=== PATIENT | male | born 1940 | race Caucasian/White ===

== ENCOUNTER 2016-12-10 13:26 | Outpatient (CLI) | payer MEDICARE, OTHER | END 2016-12-10 13:27 | disposition home or self-care (01) | DX: K80.20 Calculus of gallbladder without cholecystitis without obstruction (principal); I10 Essential (primary) hypertension; G47.00 Insomnia, unspecified ==

== ENCOUNTER 2016-12-23 10:19 | Outpatient (CLI) | payer MEDICARE, OTHER | END 2016-12-23 10:20 | disposition home or self-care (01) | DX: I48.91 Unspecified atrial fibrillation (principal) ==

== ENCOUNTER 2016-12-31 09:53 | Outpatient (CLI) | payer MEDICARE, OTHER | END 2016-12-31 09:54 | disposition home or self-care (01) | DX: I48.91 Unspecified atrial fibrillation (principal) ==

== ENCOUNTER 2020-04-15 09:04 | Outpatient (CLI) | payer MEDICARE, OTHER | END 2020-04-15 09:05 | disposition short-term general hospital (02) | LOC: EMS 09:04 | PROVIDERS: ATTEND Surgery | DX: K92.0 Hematemesis (principal); R53.1 Weakness; R68.83 Chills (without fever) | CPT/HCPCS: A0425; A0427 ==

== ENCOUNTER 2020-04-18 15:04 | Outpatient (CLI) | payer MEDICARE, OTHER | END 2020-04-18 15:05 | disposition home or self-care (01) | LOC: LAB 15:04 | PROVIDERS: ATTEND Family Medicine | DX: Z11.59 Encounter for screening for other viral diseases (principal) | CPT/HCPCS: 81599 ==

== ENCOUNTER 2020-06-02 13:34 | Emergency (ER) | payer MEDICARE, OTHER ==
[2020-06-02] MEDS ORDERED: SODIUM CHLORIDE 0.9% 1,000 ML IV STA ×2 (14:02)
--- NOTE | 2020-06-02 14:04 | ED Physician Documentation ---
History of Present Illness - Stated complaint Stated Complaint: NEAR SYNCOPE - Chief complaint Chief Complaint: Cardiac - History obtained from History obtained from: Patient - History of Present Illness Timing: How many weeks ago (2) - Additonal information Additional information: 80-year-old male with history of hypertension was recently placed on hydrochloro thiazide about 2 weeks ago. He began to feel off about that time. Today he has near syncope and is called the ambulance. He states that he did get a bit diaphoretic and almost passed out. He is not had an injury. Review of Systems Constitutional: denies: Fever Eyes: denies: Decreased vision Ears: denies: Ear pain Nose: denies: Congestion Throat: denies: Sore throat Cardiac: denies: Chest pain / pressure, Palpitations Respiratory: denies: Dyspnea, Cough GI: denies: Abdominal Pain, Nausea, Vomiting, Constipation, Diarrhea : denies: Dysuria, Frequency Skin: denies: Rash Musculoskeletal: denies: Neck pain, Back pain, Extremity pain Neurologic: reports: Generalized weakness, Near syncope. denies: Focal weakness, Numbness PD PAST MEDICAL HISTORY - Allergies Allergies/Adverse Reactions: Allergies Allergy/AdvReac Type Severity Reaction Status Date / Time No Known Drug Allergies Allergy Verified 06/02/20 14:18 PD ED PE NORMAL - Vitals Vital signs reviewed: Yes (wide pulse pressure hpoxiemia) - General General: No acute distress, Well developed/nourished - HEENT HEENT: Atraumatic, PERRL, EOMI - Neck Neck: Supple, no meningeal sign, No bony TTP - Cardiac Cardiac: RRR, No murmur - Respiratory Respiratory: No respiratory distress, Clear bilaterally - Abdomen Abdomen: Normal bowel sounds, Soft, Non tender, Non distended, No organomegaly - Back Back: No CVA TTP, No spinal TTP - Derm Derm: Normal color, Warm and dry, No rash - Extremities Extremities: No deformity, No edema, No calf tenderness / cord - Neuro Neuro: Alert and oriented X 3, neonatal specialist 2-12 intact, No motor deficit, No sensory deficit, Normal speech Eye Opening: Spontaneous Motor: Obeys Commands Verbal: Oriented GCS Score: 15 - Psych Psych: Normal mood, Normal affect Results - Vitals Vitals: Vital Signs - 24 hr 06/02/20 06/02/20 06/02/20 13:44 14:30 15:30 Temperature 36.5 C Heart Rate 59 L 60 63 Respiratory 16 15 13 Rate Blood Pressure 112/46 L 105/45 L 121/55 L O2 Saturation 91 L 99 100 06/02/20 16:00 Temperature Heart Rate 65 Respiratory 18 Rate Blood Pressure 139/49 H O2 Saturation 100 Oxygen O2 Source Room air - EKG (time done) 1338 Rate: Rate (enter#) Rhythm: Other (sinus arrythmia/supraventricular bigeminy) Intervals: Wide QRS Compare to prior EKG: Old EKG unavailable Computer interpretation: Agree with computer - Labs Labs: Laboratory Tests 06/02/20 06/02/20 06/02/20 14:18 14:18 15:47 WBC 10.6 RBC 3.65 L Hgb 9.0 L Hct 29.1 L MCV 79.7 L MCH 24.7 L MCHC 30.9 L RDW 18.3 H Plt Count 349 MPV 10.3 Neut # (Auto) 8.2 H Lymph # (Auto) 1.2 L Bacon # (Auto) 1.0 Eos # (Auto) 0.1 Baso # (Auto) 0.0 Absolute Nucleated RBC 0.00 Nucleated RBC % 0.0 Sodium 136 Potassium 4.1 Chloride 99 L Carbon Dioxide 26 Anion Gap 11.0 BUN 32 H Creatinine 1.4 H Estimated GFR (MDRD) 49 L Glucose 113 H Calcium 9.0 Magnesium 1.8 Total Bilirubin 1.2 H AST 15 ALT 21 Alkaline Phosphatase 90 Total Protein 6.6 L Albumin 3.9 Globulin 2.7 Albumin/Globulin Ratio 1.4 Lipase 27 Urine Color YELLOW Urine Clarity CLEAR Urine pH 5.5 Ur Specific [place] 1.015 Urine Protein NEGATIVE Urine Glucose (UA) NEGATIVE Urine Ketones TRACE Urine Occult Blood NEGATIVE Urine Nitrite NEGATIVE Urine Bilirubin NEGATIVE Urine Urobilinogen 0.2 (NORMAL) Ur Leukocyte Esterase NEGATIVE Ur Microscopic Review NOT INDICATED Urine Culture Comments NOT INDICATED Procedures - IVC sono (time) 1400 Bedside IVC sono: IVC measures (cm) (0.77), IVC collapsed c insp (cm) (complete), Significant dehydration (measurement after one liter is in shows a persistence of 2-3 liter deficit.) PD MEDICAL DECISION MAKING - ED course Complexity details: reviewed results, re-evaluated patient, considered differential, d/w patient ED course: 80-year-old male recently started on hydrochlorothiazide has become significantly dehydrated he does have acute kidney injury. He has generalized weakness and saline is instituted here in the emergency department. He has marked improvement produces urine and wants to go home. Departure - Departure Disposition: 01 Home, Self Care Clinical Impression: Dehydration Condition: Stable Instructions: ED Dehydration Follow-Up: Supa Blevins MD [Primary Care Provider] - Comments: Stop the hydrochlorothiazide. Discharge Date/Time: 06/02/20 16:22
[2020-06-02 14:23] LABS: BASOPHILS % (AUTO) 0.4 %; EOSINOPHILS # (AUTO) 0.1 10^3/uL (0.0-0.7); EOSINOPHILS % (AUTO) 1.2 %; LYMPHOCYTES # (AUTO) 1.2 10^3/uL (1.5-3.5); LYMPHOCYTES % (AUTO) 11.5 %; MEAN CORPUSCULAR HEMOGLOBIN 24.7 pg (27.0-31.0); MEAN CORPUSCULAR HGB CONC 30.9 g/dL (32.0-36.0); MEAN CORPUSCULAR VOLUME 79.7 fL (80.0-94.0); MEAN PLATELET VOLUME 10.3 fL (7.4-11.4); MONOCYTES % (AUTO) 9.4 %; NEUTROPHILS # (AUTO) 8.2 10^3/uL (1.5-6.6); NEUTROPHILS % (AUTO) 76.9 %; PLT - PLATELET COUNT 349 10^3/uL (130-450); RED BLOOD COUNT 3.65 10^6/uL (4.70-6.10); RED CELL DISTRIBUTION WIDTH 18.3 % (12.0-15.0); WHITE BLOOD COUNT 10.6 x10^3/uL (4.8-10.8)
[2020-06-02 14:36] LABS: ALBUMIN 3.9 g/dL (3.2-5.5); ALBUMIN/GLOBULIN RATIO 1.4 (1.0-2.2); BILIRUBIN,TOTAL 1.2 mg/dL (0.2-1.0); CREATININE 1.4 mg/dL (0.6-1.2); MAGNESIUM 1.8 mg/dL (1.7-2.8); TOTAL PROTEIN 6.6 g/dL (6.7-8.2)
[2020-06-02 15:59] LABS: BILIRUBIN,URINE NEGATIVE (NEGATIVE); GLUCOSE, URINE (UA) NEGATIVE (NEGATIVE); KETONES,URINE (UA) TRACE mg/dL (NEGATIVE); LEUKOCYTE ESTERASE, URINE NEGATIVE (NEGATIVE); NITRITE,URINE NEGATIVE (NEGATIVE); OCCULT BLOOD,URINE NEGATIVE (NEGATIVE); PH,URINE 5.5 PH (5.0-7.5); PROTEIN,URINE NEGATIVE (NEGATIVE); UROBILINOGEN,URINE 0.2 (NORMAL) E.U./dL (NORMAL)
[2020-06-02 16:00] LABS: CLARITY,URINE CLEAR (CLEAR)
[2020-06-02 16:22] VITALS: BP 139/49
== END 2020-06-02 16:22 | disposition home or self-care (01) ==
LOC: MERGE 13:34 → ED 13:34
DX: E86.0 Dehydration (principal); N17.9 Acute kidney failure, unspecified; R00.8 Other abnormalities of heart beat; I10 Essential (primary) hypertension
CPT/HCPCS: 36415; 80053; 81001; 81003; 83690; 83735; 85025; 87086; 93005; 99283; 99284

== ENCOUNTER 2020-06-20 08:00 | Outpatient (CLI) | payer MEDICARE, OTHER ==
--- NOTE | 2020-06-20 16:07 | XRAY Report ---
PROCEDURE: Knee 3 View RT INDICATIONS: RIGHT KNEE PAIN TECHNIQUE: 6 views of the right knee(s) were acquired. COMPARISON: None. 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 No hardware failure is identified. However, there is significant lucency surrounding the tibial compone nt of the hardware seen at both the cement bone interface and prosthesis bone interface. There is als o evidence of lucency involving the medial aspect of the distal femoral component. No acute fracture seen. No suspicious bony lesions. Soft tissues: No joint effusion. Extensive vascular calcifications. IMPRESSION: Status post right total knee arthroplasty with constrained, hinged type surgical hardware. Although t here is no hardware failure, there is radiographic evidence to suggest significant loosening of the p rosthesis. Loosening is most severe in the tibial component. There is also loosening of the distal fe moral component. Concurrent infection not excluded if clinically appropriate. No acute fractures. Reviewed by: Tyree Mena MD on 06/20/2020 4:05 PM PDT Approved by: Tyree Mena MD on 06/20/2020 4:05 PM PDT Station ID: [id number]
== END 2020-06-20 23:59 | disposition home or self-care (01) ==
LOC: DI.S 08:00
PROVIDERS: ATTEND Physician Assistant
DX: T84.032A Mechanical loosening of internal right knee prosthetic joint, initial encounter (principal)

== ENCOUNTER 2021-03-05 19:07 | Outpatient (CLI) | payer MEDICARE, OTHER | END 2021-03-05 19:08 | disposition short-term general hospital (02) | LOC: EMS 19:07 | DX: R42 Dizziness and giddiness (principal); I10 Essential (primary) hypertension | CPT/HCPCS: A0425; A0429 ==